=== PATIENT | male | born 1960 | race Asian ===

== ENCOUNTER 2019-08-09 08:31 | Day surgery (SDC) | payer OTHER ==
[~2019-08-09] VITALS: Ht 167.6 cm; Wt 63.0 kg
[2019-08-09] MEDS ORDERED: fentaNYL 0.05 MG/ML VIAL ONE (10:50)
[2019-08-09] MEDS ORDERED: LIDOCAINE 2% 100 MG/5 ML UJET TP ONE (10:51)
[2019-08-09] MEDS ORDERED: fentaNYL 0.05 MG/ML VIAL IVP ONE (12:30)
== END 2019-08-09 12:15 | disposition home or self-care (01) ==
LOC: MDS 08:31 → MMU 08:38 → MDS 12:15
PROVIDERS: ATTEND Internal Medicine Gastroenterology
DX: Z12.11 Encounter for screening for malignant neoplasm of colon (principal); K64.8 Other hemorrhoids
CPT/HCPCS: 45378; J3010